=== PATIENT | male | born 1965 | race Caucasian/White ===

== ENCOUNTER 2016-12-05 14:10 | Emergency (ER) | payer OTHER ==
[2016-12-05 14:20] VITALS: BP 114/66; PULSE 73; RESP 17; TEMP 98.5; O2SAT 99
[2016-12-05] MEDS ORDERED: Dexamethasone 4 mg/1 ml IM STA (14:42)
[2016-12-05] MEDS ORDERED: Dexamethasone 4 mg/1 ml ONE (14:47)
--- NOTE | 2016-12-05 17:24 | C.PDOC ---
History Of Present Illness Patient is a 54 year old male who presents to the ER with a complaint of a puritic rash for the past 5-7 days. Patient states he is HIV positive and reports his HAART medication was recently changed. Patient reports he was in the sun last week and notes the areas he did not applied suntan lotion to has broken out with the rash. Denies fever or cough. Time Seen by Provider: 12/05/16 14:32 Chief Complaint (Nursing): Abnormal Skin Integrity History Per: Patient History/Exam Limitations: no limitations Onset/Duration Of Symptoms: Days (5-7) Current Symptoms Are (Timing): Still Present Recent travel outside of the [place]: No Past Medical History Reviewed: Historical Data, Nursing Documentation, Vital Signs Vital Signs: Last Vital Signs Temp 98.5 F 12/05/16 14:17 Pulse 73 12/05/16 14:17 Resp 17 12/05/16 14:17 BP 114/66 12/05/16 14:17 Pulse Ox 99 12/05/16 17:36 - Medical History PMH: HIV Surgical History: No Surg Hx Family History: States: Unknown Family Hx - Social History Hx Tobacco Use: No Hx Alcohol Use: No Hx Substance Use: No - Immunization History Hx Tetanus Toxoid Vaccination: No Hx Influenza Vaccination: No Hx Pneumococcal Vaccination: (unk) Review Of Systems Constitutional: Negative for: Fever Respiratory: Negative for: Cough Skin: Positive for: Rash Physical Exam - Physical Exam Appears: Non-toxic, No Acute Distress Skin: Warm, Dry, Rash (Diffuse maculopapular rash to chest, abdomen, and upper back. (lower back clear, patient states suntan lotionwas applied only to that part of back)) Head: Atraumatic, Normacephalic Oral Mucosa: Moist Throat: Normal, No Other (Swelling) Chest: Symmetrical, No Tenderness Cardiovascular: Rhythm Regular, No Murmur Respiratory: Normal Breath Sounds, No Stridor, No Wheezing Neurological/Psych: Oriented x3, Normal Speech, Normal Cognition ED Course And Treatment O2 Sat by Pulse Oximetry: 99 (Room air) Pulse Ox Interpretation: Normal Progress Note: Decadron administered. Recommended patient stay out of sun or apply suntan lotion as some HAART medications can cause photosensitivity. Disposition - Disposition Referrals: [facility] Bull, [Non-Staff] - Disposition: HOME/ ROUTINE Disposition Time: 14:40 Condition: GOOD Additional Instructions: Thank you for letting us take care of you today. Your provider was Dr. Cervantes. You were treated for side effect of medication. The emergency medical care you received today was directed at your acute symptoms. If you were prescribed any medication, please fill it and take as directed. It may take several days for your symptoms to resolve. Return to the Emergency Department if your symptoms worsen, do not improve, or if you have any other problems. Please contact your doctor or call one of the physicians/clinics you have been referred to that are listed on the Patient Visit Information form that is included in your discharge packet. Bring any paperwork you were given at discharge with you along with any medications you are taking to your follow up visit. Our treatment cannot replace ongoing medical care by a primary care provider (PCP) outside of the emergency department. Thank you for allowing the [facility] team to be part of your care today. Follow up with your doctor in 3-4 days for re-evaluation. Prescriptions: predniSONE [Prednisone] 40 mg PO DAILY #10 tab - Clinical Impression Clinical Impression: Medication side effect - Scribe Statement The provider has reviewed the documentation as recorded by the Scribe Gage Mcdaniel All medical record entries made by the Scribe were at my direction and personally dictated by me. I have reviewed the chart and agree that the record accurately reflects my personal performance of the history, physical exam, medical decision making, and the department course for this patient. I have also personally directed, reviewed, and agree with the discharge instructions and disposition.
== END 2016-12-05 14:52 | disposition home or self-care (01) ==
LOC: C.ER 14:10
DX: L27.0 Generalized skin eruption due to drugs and medicaments taken internally (principal); T50.995A Adverse effect of other drugs, medicaments and biological substances, initial encounter; Z21 Asymptomatic human immunodeficiency virus [HIV] infection status
CPT/HCPCS: 96372; 99283; J1100

== ENCOUNTER 2017-10-23 16:42 | Emergency (ER) | payer OTHER ==
--- NOTE | 2017-10-23 18:49 | C.PDOC ---
Time Seen by Provider: 10/23/17 18:22 Chief Complaint (Nursing): Lower Extremity Problem/Injury Past Medical History Vital Signs: Last Vital Signs Temp 98.1 F 10/23/17 16:57 Pulse 67 10/23/17 16:57 Resp 16 10/23/17 16:57 BP 106/62 10/23/17 16:57 Pulse Ox 100 10/23/17 16:57 - Medical History PMH: HIV Family History: States: Unknown Family Hx - Social History Hx Tobacco Use: No Hx Alcohol Use: No Hx Substance Use: No - Immunization History Hx Tetanus Toxoid Vaccination: No Hx Influenza Vaccination: No Hx Pneumococcal Vaccination: (unk) ED Course And Treatment O2 Sat by Pulse Oximetry: 100 Disposition - Disposition Disposition: HOME/ ROUTINE Disposition Time: 18:48 Condition: STABLE Additional Instructions: Follow up with your primary medical doctor or clinic in 2-5 days for further evaluation. Take medications as prescribed. Return to the emergency department at any time if symptoms persist or worsen. Prescriptions: DiphenhydrAMINE [Benadryl] 25 mg PO Q6 #20 cap Hydrocortisone 1% Cream [Cortizone 1% Cream] 1 appl TP TID #1 tube Instructions: Skin Rash (DC)
--- NOTE | 2017-10-23 18:52 | C.PDOC ---
History Of Present Illness 52 year old male presents to the emergency department with complaints of a recurring itchy rash to bilaterally legs which started a month ago. Patient reports this rash happens every time he "walks a lot" and then self resolves the next day. Yesterday he notes that he walked a lot, noticed the rash but it persisted today prompting ED visit. No known allergens, food, or medication. Denies sob, chest pain, change in sensation, calf pain, fever, or trauma. Time Seen by Provider: 10/23/17 17:45 Chief Complaint (Nursing): Lower Extremity Problem/Injury History Per: Patient History/Exam Limitations: no limitations Onset/Duration Of Symptoms: Days, Persistent Current Symptoms Are (Timing): Still Present Past Medical History Reviewed: Historical Data, Nursing Documentation, Vital Signs Vital Signs: Last Vital Signs Temp 98 F 10/23/17 19:17 Pulse 81 10/23/17 19:17 Resp 18 10/23/17 19:17 BP 105/69 10/23/17 19:17 Pulse Ox 96 10/23/17 19:17 - Medical History PMH: HIV Surgical History: No Surg Hx Family History: States: No Known Family Hx - Social History Hx Tobacco Use: No Hx Alcohol Use: No Hx Substance Use: No - Immunization History Hx Tetanus Toxoid Vaccination: No Hx Influenza Vaccination: No Hx Pneumococcal Vaccination: (unk) Review Of Systems Except As Marked, All Systems Reviewed And Found Negative. Constitutional: Negative for: Fever Respiratory: Negative for: Shortness of Breath Skin: Positive for: Rash (on right foot and bilateral lower legs) Physical Exam - Physical Exam Appears: Well, Non-toxic, No Acute Distress Skin: Warm, Dry, Rash ((+) erythematous macularpapular rash to the b/l inner medial ankles and b/l upper outer leg) Head: Atraumatic, Normacephalic Eye(s): bilateral: Normal Inspection, EOMI Nose: Normal Oral Mucosa: Moist Neck: Normal ROM, Supple Chest: Symmetrical Respiratory: No Accessory Muscle Use, Other (speaking in full sentences) Extremity: Normal ROM, No Calf Tenderness, Capillary Refill (< 2sec) Pulses: Left Dorsalis Pedis: Normal, Right Dorsalis Pedis: Normal Neurological/Psych: Oriented x3, Normal Speech, Normal Cognition, Normal Motor, Normal Sensation Gait: Steady ED Course And Treatment O2 Sat by Pulse Oximetry: 100 (RA) Pulse Ox Interpretation: Normal Progress Note: Discussed with pt possible ddx including but not limited to infectious or allergic. SInce the area is symmetrical to b/l legs, likely contact dermatitis. Instructed to evaluate for offending agents and follow up with dermatology. Case discussed with Dr Waldron, agreed upon plan and discharge. Disposition - Disposition Disposition: HOME/ ROUTINE Disposition Time: 18:30 Condition: STABLE Additional Instructions: Follow up with your primary medical doctor or clinic in 2-5 days for further evaluation. Take medications as prescribed. Return to the emergency department at any time if symptoms persist or worsen. Prescriptions: DiphenhydrAMINE [Benadryl] 25 mg PO Q6 #20 cap Hydrocortisone 1% Cream [Cortizone 1% Cream] 1 appl TP TID #1 tube Instructions: Skin Rash (DC) Forms: [employer] (Serbian) - Clinical Impression Clinical Impression: Pruritic rash - PA / OPERATOR SPECIALIST COMMUNICATIONS / Resident Statement MD/DO has reviewed & agrees with the documentation as recorded. - Scribe Statement The provider has reviewed the documentation as recorded by the Scribe (Romulo Huang) All medical record entries made by the Scribe were at my direction and personally dictated by me. I have reviewed the chart and agree that the record accurately reflects my personal performance of the history, physical exam, medical decision making, and the department course for this patient. I have also personally directed, reviewed, and agree with the discharge instructions and disposition.
[2017-10-23 19:18] VITALS: BP 105/69; PULSE 81; RESP 18; TEMP 98
[2017-10-23 21:05] VITALS: O2SAT 100
== END 2017-10-23 19:20 | disposition home or self-care (01) ==
LOC: C.ER 16:42
DX: R21 Rash and other nonspecific skin eruption (principal); L29.9 Pruritus, unspecified